=== PATIENT | female | born 1990 | race Caucasian/White ===

== ENCOUNTER 2020-09-01 17:13 | Emergency (ER) | payer OTHER, MEDICAID ==
[~2020-09-01] VITALS: Ht 149.9 cm; Wt 55.3 kg
[2020-09-01] MEDS ORDERED: LEVOTHYROXINE13 MCG PO (17:27)
[2020-09-01] MEDS ORDERED: PROAIR HFA8.5 GM INH (17:27)
[2020-09-01] MEDS ORDERED: CEPHALEXIN500 MG PO (17:56)
[2020-09-01 18:00] VITALS: BP 123/72
== END 2020-09-01 18:01 | disposition home or self-care (01) ==
LOC: M.ERS 17:13
DX: J02.0 Streptococcal pharyngitis (principal); E03.9 Hypothyroidism, unspecified; Z88.1 Allergy status to other antibiotic agents; Z88.0 Allergy status to penicillin

== ENCOUNTER 2020-09-15 01:21 | Emergency (ER) | payer MEDICAID ==
[~2020-09-15] VITALS: Ht 149.9 cm; Wt 54.4 kg
[~2020-09-15 01:21] MED LIST: CEPHALEXIN500 MG PO; LEVOTHYROXINE13 MCG PO; PROAIR HFA8.5 GM INH
[2020-09-15 01:51] VITALS: BP 118/66
--- NOTE | 2020-09-16 14:36 | EKG ---
[place] [address] ELECTROCARDIOGRAM REPORT Name: SAMIRA LOPEZ Room: [facility]#: [id number] Admission: 09/15/20 Attend Phys: Discharge: 09/15/20 Date of : 89 Date of Service: 09/15/20200 Report #: [id number] THIS REPORT FOR: //name// [facility] ED Test Date: 2020-09-15 Test Time: 02:01:56 Pat Name: SAMIRA LOPEZ Department: Room: Gender: [employer]: : 1990 Requested By: Sandie Ludwig Order Number: [id number] Maryuri MD: Dale Contreras Measurements Intervals [place] Rate: 74 P: 14 VT: 135 QRS: 71 QRSD: 87 T: -13 QT: 403 QTc: 448 Interpretive Statements Sinus rhythm Borderline T abnormalities, inferior leads No previous ECG available for comparison Electronically Signed On 09-16-2020 14:36:20 CDT by Dale Contreras [email or web address] <ELECTRONICALLY SIGNED> By: Dlae Contreras MD, [facility] 09/16/20 1436 020 0 Dale Contreras MD, FAC /EPI
== END 2020-09-15 02:36 | disposition left against medical advice (07) ==
LOC: M.ERS 01:21
DX: M54.2 Cervicalgia (principal); M25.512 Pain in left shoulder; E03.9 Hypothyroidism, unspecified; Z88.1 Allergy status to other antibiotic agents; Z88.0 Allergy status to penicillin; Z79.2 Long term (current) use of antibiotics